=== PATIENT | male | born 1955 | race Caucasian/White ===

== ENCOUNTER 2021-10-27 15:18 | Emergency (ER) | payer OTHER ==
[~2021-10-27] VITALS: Ht 190.5 cm; Wt 102.5 kg
== END 2021-10-27 17:59 | disposition home or self-care (01) ==
LOC: ER 15:18
DX: K57.90 Diverticulosis of intestine, part unspecified, without perforation or abscess without bleeding (principal); Z88.6 Allergy status to analgesic agent; Z88.0 Allergy status to penicillin; Z91.013 Allergy to seafood